=== PATIENT | male | born 1980 | race Two or more races ===

== ENCOUNTER 2025-01-24 08:33 | Emergency (ER) | payer OTHER ==
[~2025-01-24] VITALS: Ht 167.6 cm; Wt 72.0 kg
[2025-01-24] MEDS ORDERED: cholesterol med PO (08:40)
[2025-01-24 10:29] VITALS: TEMP 98.2
[2025-01-24 11:01] VITALS: BP 124/87; PULSE 77; RESP 18; O2SAT 97
== END 2025-01-24 13:42 ==
LOC: EMS 08:35
DX: Z11.1 Encounter for screening for respiratory tuberculosis (principal); R09.81 Nasal congestion; E78.00 Pure hypercholesterolemia, unspecified
CPT/HCPCS: 71046; 99283